=== PATIENT | male | born 1970 | race Caucasian/White ===

== ENCOUNTER 2019-08-01 18:27 | Emergency (ER) | payer BC, OTHER ==
[~2019-08-01] VITALS: Ht 185.4 cm; Wt 120.2 kg
[2019-08-01] MEDS ORDERED: AMOXICILLIN 500 MG (POLYMOX) CAP PO STA (20:34)
--- NOTE | 2019-08-01 20:39 | ED EENT ---
History of Present Illness General Chief Complaint: Dental Problems/Pain Stated Complaint: DENTAL PAIN Nursing Triage Note: Pt c/o dental pain in second to last tooth on lower L side. Pt reports loosing a filling last week. Pt reports taking aleve 1-2 hours ago. History of Present Illness Date Seen by Provider: Aug 01, 2019 Time Seen by Provider: 19:15 Initial Comments 49-year-old male presents with left lower dental pain. He has not seen a dentist in some time. He just moved to the area. He has been taking Aleve with minimal improvement in symptoms. Severity: moderate Location: dental Prearrival Treatment: over the counter meds Associated Symptoms: tooth pain Allergies and Home Medications Allergies Coded Allergies: No Known Drug Allergies (Unverified , 08/01/19) Home Medications Amoxicillin 500 Mg Capsule, 500 MG PO TID Prescribed by: SRAVANTHI RIVERA on 08/01/192042 Tramadol HCl 50 Mg Tablet, 50 MG PO Q6H PRN for PAIN Prescribed by: SRAVANTHI RIVERA on 08/01/192042 Patient Home Medication List Home Medication List Reviewed: Yes Review of Systems Review of Systems Constitutional: no symptoms reported Mouth: see HPI, pain (left dental) All Other Systems Reviewed Negative Unless Noted: Yes Past Zoqcrlq-Fqkkuj-Hfoujx Hx Past Med/Social Hx: Reviewed Nursing Past Med/Soc Hx Patient Social History Alcohol Use: Occasionally Uses Recreational Drug Use: No Smoking Status: Current Everyday Smoker Type Used: Cigarettes 2nd Hand Smoke Exposure: Yes Recent Foreign Travel: No Contact w/Someone Who Travel: No Recent Infectious Disease Expo: No Recent Hopitalizations: No Seasonal Allergies Seasonal Allergies: No Past Medical History Surgeries: Yes (R knee, screws in L ankle) Orthopedic Respiratory: No Cardiac: Yes High Cholesterol, Hypertension Neurological: No Genitourinary: No Gastrointestinal: No Musculoskeletal: No Endocrine: Yes Diabetes, Non-Insulin dep HEENT: No Cancer: No Psychosocial: No Blood Disorders: No Physical Exam Vital Signs Vital Signs - First Documented 08/01/19 18:48 Temp 99.1 Pulse 75 Resp 18 B/P (MAP) 182/121 (141) Pulse Ox 98 O2 Delivery Room Air Height, Weight, BMI Height: 6'1.00" Weight: 265lbs. oz. 120.528195ck; BMI Method:Stated General Appearance: WD/WN, no apparent distress Ears: bilateral ear auricle normal, bilateral ear canal normal, bilateral ear TM normal Mouth/Throat: pharynx normal, dental tenderness (right lower molars), mandibular swelling; No maxillary swelling, No pharynx swelling, No pharynx tenderness, No tongue swollen, No uvula swelling, No voice changes Neck: non-tender, full range of motion, supple, normal inspection, lymphadenopathy (L) Cardiovascular: normal peripheral pulses, regular rate, rhythm Respiratory: chest non-tender, lungs clear, normal breath sounds Gastrointestinal: normal bowel sounds, non tender, soft Neurologic/Psychiatric: no motor/sensory deficits, alert, normal mood/affect, oriented x 3 Skin: normal color, warm/dry Progress/Results/Core Measures Results/Orders My Orders Orders - SRAVANTHI RIVERA Amoxicillin Capsule (Polymox Capsule) (08/01/19 20:34) Tramadol Tablet (Ultram Tablet) (08/01/19 20:45) Medications Given in ED Current Medications Medications Dose Ordered Sig/Siva Route Start Time Stop Time Status Last Admin Dose Admin Tramadol HCl 50 mg ONCE ONCE PO 08/01/19 20:45 08/01/19 20:46 DC 08/01/19 20:51 50 MG Vital Signs/I&O 08/01/19 08/01/19 18:48 20:51 Temp 99.1 99.1 Pulse 75 75 Resp 18 18 B/P (MAP) 182/121 (141) 178/98 (124) Pulse Ox 98 98 O2 Delivery Room Air Blood Pressure Mean: 141 Departure Impression Primary Impression: Dental abscess Additional Impression: Pain, dental Disposition: 01 HOME, SELF-CARE Condition: Improved Departure-Patient Inst. Decision time for Depature: 20:30 Referrals: NO,LOCAL PHYSICIAN (PCP/Family) Primary Care Physician Patient Instructions: Dental Pain (DC), Tooth Abscess (DC) Add. Discharge Instructions: Take antibiotic as prescribed. Continue to take 2 Aleve twice daily with food. You may also take Tylenol 650 mg every 8 hours. Take antibiotic as prescribed. Use the tramadol every 8 hours for breakthrough pain. Seek care at a dental clinic or dentist office. On license of [facility] [phone] Establish care for treatment of your hypertension. Return to emergency department for new, urgent health care problems. All discharge instructions reviewed with patient and/or family. Voiced understa nding. Scripts Amoxicillin (Amoxicillin) 500 Mg Capsule 500 MG PO TID, #21 CAP 0 Refills Prov: SRAVANTHI RIVERA 08/01/19 Tramadol HCl (Tramadol HCl) 50 Mg Tablet 50 MG PO Q6H PRN for PAIN, #20 TAB 0 Refills Prov: SRAVANTHI RIVERA 08/01/19 SRAVANTHI RIVERA Aug 01, 2019 20:39
[2019-08-01] MEDS ORDERED: TRAM50TA2 PO (20:43)
[2019-08-01] MEDS ORDERED: AMOX500C2 PO (20:43)
[2019-08-01 20:51] VITALS: BP 178/98
== END 2019-08-01 20:51 | disposition home or self-care (01) ==
LOC: ER 18:28
DX: K04.7 Periapical abscess without sinus (principal); I10 Essential (primary) hypertension; E78.00 Pure hypercholesterolemia, unspecified; E11.9 Type 2 diabetes mellitus without complications; F17.210 Nicotine dependence, cigarettes, uncomplicated
CPT/HCPCS: 99283

== ENCOUNTER 2022-02-09 03:17 | Emergency (ER) | payer SELFPAY ==
[~2022-02-09] VITALS: Ht 185.5 cm; Wt 83.9 kg
[2022-02-09 03:17] VITALS: BP 162/124
[~2022-02-09 03:17] MED LIST: AMOX500C2 PO; TRM50T PO
[2022-02-09] MEDS ORDERED: TETANUS,DIPTH,PERTUSS P/F (BOOSTRIX) 0.5 ML VIAL IM ONE (03:45)
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
[2022-02-09] MEDS ORDERED: LIDOCAINE/EPI 2% 1:100,00 (XYLOCAINE) 20 ML VIAL INJ ONE (05:00)
[2022-02-09] MEDS ORDERED: RX-CEPHALEXIN (KEFLEX) 250 MG CAP PPK#4 PO STA (05:09)
[2022-02-09] MEDS ORDERED: RX-MUPIROCIN (BACTROBAN) 2% OINT 22 GM TUBE TOP STA (05:09)
[2022-02-09] MEDS ORDERED: CEPH500T PO (05:17)
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
== END 2022-02-09 05:43 | disposition home or self-care (01) ==
LOC: EDUNIT# 03:17 → ER 03:18
DX: S08.0XXA Avulsion of scalp, initial encounter (principal); S01.301A Unspecified open wound of right ear, initial encounter; S05.11XA Contusion of eyeball and orbital tissues, right eye, initial encounter; S09.90XA Unspecified injury of head, initial encounter; I10 Essential (primary) hypertension; F17.210 Nicotine dependence, cigarettes, uncomplicated; Z23 Encounter for immunization; V89.2XXA Person injured in unspecified motor-vehicle accident, traffic, initial encounter
CPT/HCPCS: 70450; 70486; 72125; 90715

== ENCOUNTER → 2022-02-20 | Outpatient (CLI) | payer OTHER ==
[~2022-02-20] MED LIST changes: +CEPH500T PO
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
== END ==
LOC: RAD 11:50
PROVIDERS: ATTEND Nurse Practitioner Family
DX: R07.9 Chest pain, unspecified (principal); R07.81 Pleurodynia; V89.2XXD Person injured in unspecified motor-vehicle accident, traffic, subsequent encounter
CPT/HCPCS: 71046

== ENCOUNTER 2022-05-06 15:41 | Observation (INO) | payer OTHER ==
[~2022-05-06] VITALS: Ht 185.5 cm; Wt 104.9 kg
[2022-05-06] MEDS ORDERED: NS IV 1000 ML 1,000 ML IV SCH (16:00)
[2022-05-06] MEDS ORDERED: ONDANSETRON 4 MG/2 ML (SDV) Z0FRAN IV PRN (16:00)
[2022-05-06] MEDS ORDERED: CEFEPIME INJECTION 1,000 MG in NS (IVPB) 50 ML IV ONE (16:00)
--- NOTE | 2022-05-06 16:02 | ED Respiratory ---
General Stated Complaint: POSS PNA,POSS DKA Source: patient Exam Limitations: no limitations History of Present Illness Date Seen by Provider: May 06, 2022 Time Seen by Provider: 15:58 Initial Comments Patient is a 51-year-old male with a history of type 2 diabetes, hypertension, hyperlipidemia who presents ED with flulike symptoms. Reports of body aches, chills, fatigue and cough over the past 2 to 3 weeks. He has associated wet productive cough with bright red tinge blood in his mucus. Reports bilateral anterior chest discomfort with the cough. reports shortness of breath without wheezing. He reports subjective fever over the past 2 weeks. He has been drinking more than normal. Reports associated vomiting and diarrhea for the past 2 to 3 weeks. He has not been taking any pjbt-jqo-ufgxmaz medication for his symptoms. He states that they were symptoms have become worse. Patient was transferred by [facility] from [facility] for further evaluation. Patient denies headache, visual changes, neck pain, lower extremity numbness or tingling. Up-to-date on his COVID and influenza vaccine. Patient had a negative COVID influenza test at [facility]. Patient had elevated blood sugar with ketones in his urine Allergies and Home Medications Allergies Coded Allergies: No Known Drug Allergies (Unverified , 08/01/19) Patient Home Medication List Home Medication List Reviewed: Yes Amoxicillin (Amoxicillin) 500 Mg Capsule, 500 MG PO TID Prescribed by: SRAVANTHI RIVERA on 08/01/192042 Cephalexin (Cephalexin) 500 Mg Tablet, 500 MG PO QID Prescribed by: TIESHA HI on 02/09/22 0517 Tramadol HCl (Tramadol HCl) 50 Mg Tablet, 50 MG PO Q6H PRN for PAIN Prescribed by: SRAVANTHI RIVERA on 08/01/192042 Review of Systems Review of Systems Constitutional: chills; No diaphoresis; fever, malaise, weakness EENTM: No blurred vision, No double vision Respiratory: cough, hemoptysis, short of breath Gastrointestinal: No abdominal pain; diarrhea, nausea, vomiting Musculoskeletal: back pain; No joint pain Skin: No change in color, No change in hair/nails All Other Systems Reviewed Negative Unless Noted: Yes Past Psledaf-Lhfxbe-Srfxke Hx Seasonal Allergies Seasonal Allergies: No Past Medical History Surgeries: Yes (R knee, screws in L ankle) Orthopedic Respiratory: No Cardiac: Yes (REFUSES TO TAKE MEDICATIONS) High Cholesterol, Hypertension Neurological: No Genitourinary: No Gastrointestinal: No Musculoskeletal: No Endocrine: Yes (REFUSES TO TAKE MEDICATIONS) Diabetes, Non-Insulin dep HEENT: No Cancer: No Psychosocial: No Blood Disorders: No Physical Exam Vital Signs - First Documented 05/06/22 15:47 Temp 39.5 Pulse 120 Resp 13 B/P (MAP) 134/90 (105) Pulse Ox 93 O2 Delivery Room Air Capillary Refill : Height: 6'1.00" Weight: 265lbs. oz. 120.079329gz; 24.00 BMI Method:Stated General Appearance: WD/WN, no apparent distress Eyes: Bilateral Eye Normal Inspection, Bilateral Eye PERRL, Bilateral Eye EOMI HEENT: PERRL/EOMI, normal ENT inspection, TMs normal, pharynx normal Neck: non-tender, full range of motion, supple Respiratory: chest non-tender, lungs clear, normal breath sounds, no respiratory distress Cardiovascular: no edema, no gallop, no JVD, tachycardia Gastrointestinal: normal bowel sounds, non tender, soft Neurologic/Psychiatric: director of grants II-XII nml as tested, no motor/sensory deficits, alert, normal mood/affect Skin: normal color, warm/dry Focused Exam Lactate Level 05/06/22 16:11: Lactic Acid Level 1.63 Lactic Acid Level Laboratory Tests Test 05/06/22 16:11 Lactic Acid Level 1.63 MMOL/L (0.50-2.00) Progress/Results/Core Measures Suspected Sepsis SIRS Temperature: Pulse: Respiratory Rate: Laboratory Tests 05/06/22 16:11: White Blood Count 20.5H Blood Pressure / Mean: 05/06/22 16:11: Lactic Acid Level 1.63 Laboratory Tests 05/06/22 16:11: Creatinine 1.03, INR Comment 1.2, Platelet Count 155, Total Bilirubin 1.2H Results/Orders Lab Results Laboratory Tests Test 05/06/22 16:11 05/06/22 16:29 05/06/22 17:07 Range/Units White Blood Count 20.5 H 4.3-11.0 10^3/uL Red Blood Count 4.44 4.30-5.52 10^6/uL Hemoglobin 13.9 13.3-17.7 g/dL Hematocrit 39 L 40-54 % Mean Corpuscular Volume 87 80-99 fL Mean Corpuscular Hemoglobin 31 25-34 pg Mean Corpuscular Hemoglobin Concent 36 32-36 g/dL Red Cell Distribution Width 11.1 10.0-14.5 % Platelet Count 155 130-400 10^3/uL Mean Platelet Volume 12.4 H 9.0-12.2 fL Immature Granulocyte % (Auto) 0 % Neutrophils (%) (Auto) 93 H 42-75 % Lymphocytes (%) (Auto) 3 L 12-44 % Monocytes (%) (Auto) 3 0-12 % Eosinophils (%) (Auto) 0 0-10 % Basophils (%) (Auto) 0 0-10 % Neutrophils # (Auto) 19.1 H 1.8-7.8 10^3/uL Lymphocytes # (Auto) 0.7 L 1.0-4.0 10^3/uL Monocytes # (Auto) 0.5 0.0-1.0 10^3/uL Eosinophils # (Auto) 0.0 0.0-0.3 10^3/uL Basophils # (Auto) 0.1 0.0-0.1 10^3/uL Immature Granulocyte # (Auto) 0.1 0.0-0.1 10^3/uL Neutrophils % (Manual) 93 % Lymphocytes % (Manual) 3 % Monocytes % (Manual) 4 % Blood Morphology Comment NORMAL Prothrombin Time 15.6 H 12.2-14.7 SEC INR Comment 1.2 0.8-1.4 Activated Partial Thromboplast Time 33 24-35 SEC Sodium Level 120 *L 135-145 MMOL/L Potassium Level 3.7 3.6-5.0 MMOL/L Chloride Level 87 L 98-107 MMOL/L Carbon Dioxide Level 22 21-32 MMOL/L Anion Gap 11 5-14 MMOL/L Blood Urea Nitrogen 13 7-18 MG/DL Creatinine 1.03 0.60-1.30 MG/DL Estimat Glomerular Filtration Rate 87 BUN/Creatinine Ratio 13 Glucose Level 440 *H 70-105 MG/DL Lactic Acid Level 1.63 0.50-2.00 MMOL/L Calcium Level 9.7 8.5-10.1 MG/DL Corrected Calcium 10.3 H 8.5-10.1 MG/DL Total Bilirubin 1.2 H 0.1-1.0 MG/DL Aspartate Amino Transf (AST/SGOT) 15 5-34 U/L Alanine Aminotransferase (ALT/SGPT) 15 0-55 U/L Alkaline Phosphatase 100 40-136 U/L Troponin I < 0.028 <0.028 NG/ML Total Protein 6.7 6.4-8.2 GM/DL Albumin 3.2 3.2-4.5 GM/DL Beta-Hydroxybutyrate (Chem panel) 0.50 H 0.00-0.27 MMOL/L Glucometer 409 *H 70-110 MG/DL Urine Color ORANGE Urine Clarity CLOUDY Urine pH 6.0 5-9 Urine Specific [place] 1.010 L 1.016-1.022 Urine Protein 2+ H NEGATIVE Urine Glucose (UA) 3+ H NEGATIVE Urine Ketones 1+ H NEGATIVE Urine Nitrite NEGATIVE NEGATIVE Urine Bilirubin NEGATIVE NEGATIVE Urine Urobilinogen 1.0 < = 1.0 MG/DL Urine Leukocyte Esterase NEGATIVE NEGATIVE Urine RBC (Auto) 2+ H NEGATIVE Urine RBC 2-5 H /HPF Urine WBC RARE /HPF Urine Squamous Epithelial Cells RARE /HPF Urine Crystals NONE /LPF Urine Bacteria TRACE /HPF Urine Casts NONE /LPF Urine Mucus NEGATIVE /LPF Urine Culture Indicated CULTURE PENDING My Orders Orders - YASMINE LOMELI Cbc With Automated Diff (05/06/22 15:55) Comprehensive Metabolic Panel (05/06/22 15:55) Blood Culture (05/06/22 15:55) Sputum Culture (05/06/22 15:55) Urinalysis (05/06/22 15:55) Urine Culture (05/06/22 15:55) Protime With Inr (05/06/22 15:55) Partial Thromboplastin Time (05/06/22 15:55) Ed Iv/Invasive Line Start (05/06/22 15:55) Troponin I Sondra (05/06/22 15:55) Ondansetron Injection (Zofran Injectio (05/06/22 16:00) O2 (05/06/22 15:55) Lactic Acid Analyzer (05/06/22 15:55) Ns Iv 1000 Ml (Sodium Chloride 0.9%) (05/06/22 16:00) Cefepime Injection (Maxipime Injection) (05/06/22 16:00) Ekg Tracing (05/06/22 15:55) Beta Hydroxybutyrate (05/06/22 15:57) Manual Differential (05/06/22 16:11) Outside Films For Comparison (05/06/22 ) Acetaminophen Tablet (Tylenol Tablet) (05/06/22 16:30) Ns Iv 1000 Ml (Sodium Chloride 0.9%) (05/06/22 16:46) Azithromycin Injection (Zithromax Inject (05/06/22 17:00) Medications Given in ED Current Medications Medications Dose Ordered Sig/Siva Route Start Time Stop Time Status Last Admin Dose Admin Acetaminophen 1,000 mg ONCE ONCE PO 05/06/22 16:30 05/06/22 16:31 DC 05/06/22 16:43 1,000 MG Cefepime HCl 1000 mg/Sodium Chloride 50 ml @ 100 mls/hr ONCE ONCE IV 05/06/22 16:00 05/06/22 16:29 DC 05/06/22 16:20 100 MLS/HR Ondansetron HCl 4 mg PRN PRN IV 05/06/22 16:00 05/06/22 16:20 DC 05/06/22 16:19 4 MG Vital Signs/I&O 05/06/22 15:47 Temp 39.5 Pulse 120 Resp 13 B/P (MAP) 134/90 (105) Pulse Ox 93 O2 Delivery Room Air Capillary Refill : ECG Comment Ectopic atrial tachycardia, possible left atrial argument, possible right ventricular conduction delay, 116 bpm, QRS duration 101 MS, QTc 379 MS Departure Communication (PCP) Dr. Rosales admitting physician Patient was seen at [facility] concern for pneumonia and DKA. Patient blood sugar right above 400. Type II diabetic. Normal anion gap. Is not appear to be in DKA patient hyponatremia 120 hypochloremia 87. Was started on a liter of fluid. He was tachycardic. Sepsis protocol. Normal lactic Acid. Patient was started on cefepime initially. Patient has no abdominal tenderness. Cardiac work-up unremarkable. Chest x-ray at the clinic shows concern for mild left upper lingula infiltrate. Patient heart rate continued to improved but was febrile. Negative COVID influenza at the clinic. He has no local physician. Concerning for dehydration and pneumonia. Symptoms over the past 2 to [address] patient with Dr. Reyes recommends Rocephin azithromycin. Patient was given dose azithromycin here. Tylenol ibuprofen for fever. Insulin protocol. Patient will be admitted to the medical floor Impression Primary Impression: Pneumonia Additional Impressions: Hyperglycemia Dehydration Disposition: ADMITTED INPATIENT Condition: Stable Admissions Decision to Admit Reason: Admit from ER (General) Decision to Admit/Date: May 06, 2022 Time/Decision to Admit Time: 16:58 Departure-Patient Inst. Referrals: NO,LOCAL PHYSICIAN (PCP/Family) Primary Care Physician YASMINE LOMELI May 06, 2022 16:02
[2022-05-06 16:15] LABS: BASOPHILS # (AUTO) 0.1 10^3/uL (0.0-0.1); BASOPHILS % (AUTO) 0 % (0-10); EOSINOPHILS % (AUTO) 0 % (0-10); HEMATOCRIT 39 % (40-54); HEMOGLOBIN 13.9 g/dL (13.3-17.7); LYMPHOCYTES # (AUTO) 0.7 10^3/uL (1.0-4.0); LYMPHOCYTES % (AUTO) 3 % (12-44); MEAN CORPUSCULAR HEMOGLOBIN 31 pg (25-34); MEAN CORPUSCULAR HGB CONC 36 g/dL (32-36); MEAN CORPUSCULAR VOLUME 87 fL (80-99); MEAN PLATELET VOLUME 12.4 fL (9.0-12.2); MONOCYTES # (AUTO) 0.5 10^3/uL (0.0-1.0); MONOCYTES % (AUTO) 3 % (0-12); NEUTROPHILS # (AUTO) 19.1 10^3/uL (1.8-7.8); NEUTROPHILS % (AUTO) 93 % (42-75); PLATELET COUNT 155 10^3/uL (130-400); WHITE BLOOD COUNT 20.5 10^3/uL (4.3-11.0)
[2022-05-06 16:25] LABS: ALBUMIN 3.2 GM/DL (3.2-4.5); CHLORIDE 87 MMOL/L (98-107); POTASSIUM 3.7 MMOL/L (3.6-5.0)
[2022-05-06 16:27] LABS: CALCIUM 9.7 MG/DL (8.5-10.1)
[2022-05-06 16:28] LABS: TOTAL PROTEIN 6.7 GM/DL (6.4-8.2)
[2022-05-06 16:29] LABS: BILIRUBIN,TOTAL 1.2 MG/DL (0.1-1.0); CARBON DIOXIDE 22 MMOL/L (21-32)
[2022-05-06] MEDS ORDERED: ACETAMINOPHEN 500 MG TAB (TYLENOL) PO ONE (16:30)
[2022-05-06 16:31] LABS: ALKALINE PHOSPHATASE 100 U/L (40-136); CREATININE SERUM 1.03 MG/DL (0.60-1.30); GFR ESTIMATED 87
[2022-05-06 16:32] LABS: BUN/CREATININE RATIO 13
[2022-05-06 16:33] LABS: INR 1.2 (0.8-1.4); PROTHROMBIN TIME PATIENT 15.6 SEC (12.2-14.7)
[2022-05-06 16:34] LABS: ALANINE AMINOTRANSFERASE 15 U/L (0-55)
[2022-05-06 16:43] LABS: SODIUM 120 MMOL/L (135-145)
[2022-05-06 16:44] LABS: GLUCOSE 440 MG/DL (70-105); LYMPHOCYTES % (MANUAL) 3 %; MONOCYTES % (MANUAL) 4 %; NEUTROPHILS % (MANUAL) 93 %; RBC MORPH NORMAL
[2022-05-06] MEDS ORDERED: NS IV 1000 ML 1,000 ML IV STA (16:46)
[2022-05-06] MEDS ORDERED: AZITHROMYCIN INJECTION 500 MG in NS (IVPB) 250 ML IV NR (17:00)
[2022-05-06 17:10] LABS: BILIRUBIN,URINE NEGATIVE (NEGATIVE); CLARITY,URINE CLOUDY; COLOR,URINE ORANGE; GLUCOSE, URINE (UA) 3+ (NEGATIVE); KETONES,URINE 1+ (NEGATIVE); LEUKOCYTE ESTERASE ,URINE NEGATIVE (NEGATIVE); NITRITE,URINE NEGATIVE (NEGATIVE); PROTEIN,URINE 2+ (NEGATIVE)
[2022-05-06 17:17] LABS: BACTERIA,URINE TRACE /HPF; SQUAMOUS EPITHELIAL CELL,UR RARE /HPF; WBC,URINE RARE /HPF
[2022-05-06] MEDS ORDERED: cefTRIAXone 1 GM/50 ML (PRE-MIX) IV SCH (18:00)
[2022-05-06] MEDS ORDERED: IBUPROFEN 800 MG (MOTRIN) TAB PO PRN (18:00)
[2022-05-06] MEDS ORDERED: ACETAMINOPHEN 500 MG TAB (TYLENOL) PO PRN (18:00)
[2022-05-06] MEDS: NS IV 1000 ML 1,000 ML IV SCH (18:14)
[2022-05-06 18:19] VITALS: BP 123/74
[2022-05-06 19:20] VITALS: BP 105/64
[2022-05-06] MEDS: inSUlin ASPART (NovoLOG) 1 UNIT/0.01 ML (CHARGE PER UNIT) SC SCH (20:42)
[2022-05-06 23:45] VITALS: BP 109/71
[2022-05-07] MEDS: NS IV 1000 ML 1,000 ML IV SCH ×2 (02:06→08:31)
[2022-05-07 04:15] VITALS: BP 110/77
[2022-05-07 06:25] LABS: EOSINOPHILS % (AUTO) 0 % (0-10); HEMOGLOBIN 13.1 g/dL (13.3-17.7); MEAN CORPUSCULAR VOLUME 90 fL (80-99); MONOCYTES % (AUTO) 3 % (0-12)
[2022-05-07 06:27] LABS: BASOPHILS # (AUTO) 0.1 10^3/uL (0.0-0.1); BASOPHILS % (AUTO) 1 % (0-10); HEMATOCRIT 38 % (40-54); LYMPHOCYTES # (AUTO) 0.7 10^3/uL (1.0-4.0); LYMPHOCYTES % (AUTO) 4 % (12-44); MEAN CORPUSCULAR HEMOGLOBIN 31 pg (25-34); MEAN CORPUSCULAR HGB CONC 34 g/dL (32-36); MEAN PLATELET VOLUME 12.8 fL (9.0-12.2); MONOCYTES # (AUTO) 0.5 10^3/uL (0.0-1.0); NEUTROPHILS # (AUTO) 17.4 10^3/uL (1.8-7.8); NEUTROPHILS % (AUTO) 92 % (42-75); PLATELET COUNT 141 10^3/uL (130-400); WHITE BLOOD COUNT 19.1 10^3/uL (4.3-11.0)
[2022-05-07] MEDS: inSUlin ASPART (NovoLOG) 1 UNIT/0.01 ML (CHARGE PER UNIT) SC SCH ×2 (06:30→11:03)
[2022-05-07 06:41] LABS: POTASSIUM 3.8 MMOL/L (3.6-5.0)
[2022-05-07 06:43] LABS: CALCIUM 9.4 MG/DL (8.5-10.1)
[2022-05-07 06:47] LABS: CREATININE SERUM 0.81 MG/DL (0.60-1.30)
[2022-05-07 07:51] VITALS: BP 123/70
[2022-05-07] MEDS ORDERED: AZITHROMYCIN 250 MG TAB (ZITHROMAX) PO SCH (09:00)
--- NOTE | 2022-05-07 10:31 | Short Stay Summary-Hospitalist ---
History of Present Illness HPI/Chief Complaint Patient is a 51-year-old male with past medical history of hypertension and diabetes who presented to the emergency department due to cough and elevated blood sugars. He reports he has not felt well for the past couple of weeks despite this he has continued to work at [employer]. He states has had poor oral intake and has been working in the heat. He went to [facility] walk-in clinic for evaluation and was found to be very hyperglycemic was sent to the emergency room to rule out DKA. In the ER he was found to have pneumonia but was not in DKA. He was admitted for IV antibiotics and IV fluids. This morning he is up to the bathroom brushing his teeth and had just taken a shower. He reports feeling much better and is hopeful for discharge home. Source: patient Date Seen 05/07/22 Time Seen by a Provider: 10:10 Attending Physician No,Local Physician PCP Admitting Physician: Adelaida Rosales MD Attending Physician: Adelaida Rosales MD Referring Physician Date of Admission May 06, 2022 at 17:22 Home Medications & Allergies Home Medications Reviewed patient Home Medication Reconciliation performed by pharmacy medication reconciliations electronic prepress technician and/or nursing. Patients Allergies have been reviewed. Allergies Allergies Coded Allergies No Known Drug Allergies (Unverified08/01/19) Past Flaomxp-Wphkuw-Glcbqw Hx Patient Social History Employed/Student: employed Tobacco Use?: No Tobacco type used: Cigarettes Smoking Status: Former Smoker Use of E-Cig and/or Vaping dev: No Substance use?: No Alcohol Use?: No Alcohol type: Beer Alcohol Frequency: Once in a while Pt feels they are or have been: No Immunizations Up To Date First/Initial COVID19 Vaccinat: 03/2021 Second COVID19 Vaccination Abelardo: 04/2021 Seasonal Allergies Seasonal Allergies: No Current Status Advance Directives: No Communicates: Verbally Primary Language: Turkish Preferred Spoken Language: Turkish Is interpretation needed?: No Implanted or Applied Medical D: None Past Medical History Surgeries: Orthopedic High Cholesterol, Hypertension Diabetes, Non-Insulin dep Blood Disorders: No Family Medical History Reviewed Nursing Family Hx No Pertinent Family Hx Review of Systems Constitutional: fever, malaise EENTM: no symptoms reported Respiratory: cough; No hemoptysis; short of breath Cardiovascular: No chest pain, No edema, No Hx of Intervention, No palpitations, No syncope Gastrointestinal: No abdominal pain, No nausea, No vomiting Genitourinary: no symptoms reported Musculoskeletal: no symptoms reported Skin: no symptoms reported Psychiatric/Neurological: No Symptoms Reported Physical Exam Physical Exam Vital Signs Vital Signs - First Documented 05/06/22 15:47 Temp 39.5 Pulse 120 Resp 13 B/P (MAP) 134/90 (105) Pulse Ox 93 O2 Delivery Room Air Capillary Refill : Height, Weight, BMI Height: 6'1.00" Weight: 265lbs. oz. 120.637183yb; 30.48 BMI Method:Stated General Appearance: No Apparent Distress, WD/WN Eyes: Bilateral Eye Normal Inspection, Bilateral Eye PERRL, Bilateral Eye EOMI HEENT: PERRL/EOMI, Moist Mucous Membranes; No Scleral Icterus (L), No Scleral Icterus (R) Neck: Normal Inspection, Supple Respiratory: Lungs Clear, No Accessory Muscle Use, No Respiratory Distress Cardiovascular: Regular Rate, Rhythm, No JVD, No Murmur Gastrointestinal: Normal Bowel Sounds, Non Tender, Soft Extremity: Normal Capillary Refill, No Calf Tenderness, No Pedal Edema Neurologic/Psychiatric: Alert, Oriented x3, Normal Mood/Affect; No Aphasia, No Facial Droop Skin: Normal Color, Warm/Dry Results Results/Procedures Labs Laboratory Tests 05/06/22 16:11 05/07/22 05:32 Patient resulted labs reviewed. Imaging: Reviewed Imaging Films, Reviewed Imaging Report Short Stay Diagnosis Discharge Diagnosis-Short Stay Admission Diagnosis CAP Final Discharge Diagnosis CAP Conclusion Plan CAP Dehydration Doing well No longer febrile On room air DC home with oral abx Responded well to fluids Hyperglycemia NIDDMII Blood suagr 440 on arrival Off meds for over 3 years Did not tolerate metformin previously glipizide ordered HTN HLD Off medications for 3 years BP well controlled instructed on importance of PCP follow up Diagnosis/Problems Diagnosis/Problems (1) Non-insulin dependent type 2 diabetes mellitus Status: Chronic (2) Pneumonia Status: Acute Qualifiers: Qualified Codes: J18.9 - Pneumonia, unspecified organism (3) Hyperglycemia Status: Acute (4) Dehydration Status: Acute (5) HTN (hypertension) Status: Acute Qualifiers: Qualified Codes: I10 - Essential (primary) hypertension ADELAIDA ROSALES MD May 07, 2022 10:31
[2022-05-07 11:14] VITALS: BP 115/72
--- NOTE | 2022-05-07 12:58 | Discharge Inst-Simple/Standard ---
Discharge Inst-Standard Discharge Medications New, Converted or Re-Newed RX: Transmitted to Pharmacy Patient Instructions/Follow Up Plan of Care/Instructions/FU: Please continue to take your medications as written. Please follow up with your primary care doctor to follow up this hospital stay Activity as Tolerated: Yes Discharge Diet: ADA Diet Return to The Hospital For: Chest pain, shortness of breath, fever, weakness, if you feel you are getting worse. OPHELIA GUADALUPE MD May 07, 2022 12:58
[2022-05-07] MEDS ORDERED: CEPH500T PO (13:00)
[2022-05-07] MEDS ORDERED: AZIT250T12 PO (13:00)
[2022-05-07] MEDS ORDERED: NF-GLIP2.5 PO (13:00)
[2022-05-07 14:32] VITALS: BP 115/72
== END 2022-05-07 14:32 | disposition home or self-care (01) ==
LOC: EDUNIT# 15:41 → ER 15:43 → 4TH 17:22 → INTOOBSV 17:22
PROVIDERS: ADMIT Family Medicine; ATTEND Family Medicine
DX: J18.9 Pneumonia, unspecified organism (principal); E11.65 Type 2 diabetes mellitus with hyperglycemia; I10 Essential (primary) hypertension; E86.0 Dehydration
CPT/HCPCS: 36415; 80048; 80053; 81000; 82010; 82947; 83605; 84484; 85007; 85025; 85027; 85610; 85730; 87040; 87088; 93005; 96361; 96372; 96374; 96375; G0378